=== PATIENT | female | born 1960 | race Two or more races ===

== ENCOUNTER 2024-03-14 06:15 | Day surgery (SDC) | payer MEDICARE, MEDICAID, SELFPAY ==
--- NOTE | 2024-03-13 07:54 | EKG_ITS ---
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
[2024-03-13 10:30] LABS: Collection Type, Urine Clean Catch
[2024-03-13 10:56] LABS: Basophils % (Auto) 0 % (0-2.5); Eosinophils # (Auto) 0.1 Thou/mm3 (0.0-0.5); Eosinophils % (Auto) 1 % (0-10); Hemoglobin 13.7 g/dL (12.0-16.0); Immature Granulocytes % (Auto) 0 % (0-0); Immature Granulocytes Auto 0.01 Thou/mm3 (0.00-0.00); Lymphocytes # (Auto) 0.9 Thou/mm3 (1.0-4.8); Lymphocytes % (Auto) 12 % (10-50); Mean Corpuscular HGB Conc 32.6 g/dl (31.0-37.0); Mean Corpuscular Hemoglobin 27.7 pg (25.0-35.0); Mean Corpuscular Volume 85 fL (80-100); Monocytes # (Auto) 0.6 Thou/mm3 (0.0-0.8); Monocytes % (Auto) 8 % (0-12); Neutrophils # (Auto) 5.5 Thou/mm3 (1.8-7.7); Neutrophils % (Auto) 78 % (37-80); Nucleated Red Blood Cell % 0 /100 WBC (0); Platelet Count 256 Thou/mm3 (140-440); RDW Standard Deviation 47.6 fL (36.4-46.3); Red Blood Count 4.95 Miln/mm3 (4.00-5.20); White Blood Count 7.1 Thou/mm3 (3.6-11.0)
[2024-03-13 11:02] LABS: Partial Thromboplastin Time 28.2 Seconds (22.0-36.0); Prothrombin Time 10.9 Seconds (9.0-12.2)
[2024-03-13 11:17] LABS: Alanine Aminotransferase 20 U/L (10-49); Albumin, Serum 4.8 gm/dL (3.4-4.8); Albumin/Globulin Ratio 1.7 (1.2-2.2); Alkaline Phosphatase 123 U/L (46-116); Anion Gap 11 (7-16); Aspartate Amino Transferase 11 U/L (0-34); BUN/Creatinine Ratio 7 Ratio (12-20); Blood Urea Nitrogen 8 mg/dL (9-23); Calcium 9.5 mg/dL (8.3-10.6); Calcium (Corrected) 9.5 mg/dL (8.5-10.1); Carbon Dioxide 24.4 mMol/L (20.0-31.0); Chloride 100 mMol/L (98-107); Creatinine (Component) 1.1 mg/dL (0.6-1.3); Globulin 2.8 gm/dL (2.3-3.5); Glucose 99 mg/dL (74-106); Osmolality,Calculated 268 (275-295); Potassium 4.2 mMol/L (3.4-5.1); Sodium 135 mMol/L (136-145); Total Protein 7.6 gm/dL (5.7-8.2); eGFR 56 See Note
[2024-03-13 11:32] LABS: Bacteria,Urine Rare; Bilirubin,Urine Negative (Negative); Blood,Urine Negative (Negative); Clarity,Urine Clear (Clear/Hazy); Color,Urine Lt-Yellow (Lt Yel-Yel); Glucose, Urine Negative (Negative); Ketones,Urine Negative (Negative); Leukocyte Esterase,Urine Negative (Negative); Nitrite,Urine Negative (Negative); Protein,Urine Negative (Neg - Trace); RBC,Urine < 1 /hpf (0-3); Specific Gravity,Urine 1.008 (1.001-1.035); Squamous Epithelial Cell,Urine 3 /hpf (0-5); Transitional Epi Cells,Urine < 1 /hpf (0-5); Urobilinogen,Urine Negative mg/dL (0.0-1.0); WBC,Urine 1 /hpf (0-5)
[2024-03-13 15:12] VITALS: BMI 39.4
--- NOTE | 2024-03-13 21:05 | PD.SURHP ---
HPI Date of Admission 03/14/2024 Chief Complaint Chief Complaint: Need screening colonoscopy HPI This 63 years old female is brought for screening colonoscopy she neverf had colonoscopy. Risk benefits and alternatives were discussed with the patient and informed consent was obtained. Past Medical History Past Medical History NEUROLOGIC: Negative Neurological Disorders or Seizures CARDIAC: Positive Cardiac Disorders, Peripheral Vascular Disease, Hypercholesterolemia, Hypertension and Varicose Veins (VARICOSE VEINS); Negative Congestive Heart Failure RESPIRATORY: Positive Bronchitis; Negative Chronic Obstructive Pulmonary Disease (COPD) GASTROINTESTINAL: Positive Gastrointestinal Disorders, Gall Bladder Disease, Hemorrhoids and Obesity GENITOURINARY: Positive Genitourinary Disorders; Negative Renal Disease REPRODUCTIVE: Positive Previous Pregnancies MUSCULOSKELETAL: Positive Musculoskeletal Disorders and Arthritis ENDOCRINE: Positive Diabetes Mellitus Type 2 and Hypothyroidism; Negative Endocrine Disorders or Diabetes Mellitus Type 1 HEMATOLOGIC: Negative Blood Disorders OTHER HISTORY: Positive Hospitalization, Chicken Pox, Measles and Mumps; Negative Autoimmune Disease, Down Syndrome, Developmental Delay, Shingles, Falls, Blood Transfusions, Blood Transfusion Reaction, Anesthesia Reactions, Chemotherapy, Radiation Therapy or Cancer Family History FAMILY HISTORY: Positive Family Psychiatric Problems, Family Cardiac Disorders, Family Cancer and Family Surgery; Negative Family Respiratory Disorders, Family Gastrointestinal Problems or Family Anesthesia Reaction Surgical History SURGICAL: Positive Vascular Surgery, Thyroidectomy, Joint Replacement, of Shoulder Sx (RIGHT SHOULDER SX), Knee Sx (LEFT KNEE SX), Hysterectomy and Tubal Ligation; Negative Ear Surgery or Mastectomy Social History SMOKING STATUS: Never smoker SECOND HAND EXPOSURE: No Travel History EBOLA RISK: No Meds Home Medications and Allergies Home Medications ?Medication ?Instructions ?Recorded ?Confirmed ?Type atorvastatin 10 mg tablet 10 mg PO QDAY 08/28/22 01/11/24 History lisinopril 20 mg tablet 20 mg PO QDAY 08/28/22 01/11/24 History semaglutide 3 mg tablet (Rybelsus) 6 mg PO QDAY 08/28/22 01/11/24 History amlodipine 5 mg tablet 5 mg PO QDAY 11/09/22 01/11/24 History levothyroxine 112 mcg capsule 112 mcg PO QDAY 11/09/22 01/11/24 History estradiol 0.01% (0.1 mg/gram) 2 g vaginal DIRECTED 07/27/23 01/11/24 History vaginal cream Allergies Allergy/AdvReac Type Severity Reaction Status Date / Time morphine Allergy Intermediate itching Verified 03/13/24 15:19 acetaminophen Allergy Mild Rash Verified 03/13/24 15:19 hydrocodone Allergy Mild Rash Verified 03/13/24 15:19 Exam Constitutional Constitutional: no acute distress Routine HEENT Exam Head: Present normocephalic Eye: Present EOMI and PERRL ENT: Present mucous membranes moist Routine Neck Exam Neck: Present supple and trachea midline Comments: There is a scar in the neck for thyroidectomy. Routine Chest/Breast/Axilla Exam Chest wall: Absent tenderness or mass Routine Respiratory Exam Respiratory: Present chest non-tender, lungs clear, normal breath sounds and no resp distress; Absent respiratory distress Routine Cardiovascular Exam Cardiovascular: Present RRR Routine Abdominal Exam Abdominal: Present soft and normoactive bowel sounds Routine Extremities Exam Extremities: Present full ROM Routine Skin Exam Skin: Present intact, dry and warm Routine Neurological Exam Neurological: Present alert, oriented X3 and CN II-XII intact Routine Psychiatric Exam Psychiatric: Present normal affect and normal thought process Results Results: Laboratory Laboratory results: results reviewed Assessment & Plan Problem List (1) Encounter for screening colonoscopy: Status: Acute Plan Lower GI Endoscopy possible polypectomy. Quality Measures Quality Measures none Advance care planning discussed with:: patient
[2024-03-14] VITALS (15 sets, daily range): BP systolic 100–151; BP diastolic 71–101; PULSE 83–99; RESP 14–20; TEMP 36.6–36.8; O2SAT 92–100; BMI 38.5
--- NOTE | 2024-03-14 08:50 | SUR.PHASEII ---
0850: Pt. AAOx4, vitals stable, breathing unlabored, no complaint of pain or nausea, no dressing in place, no active bleed noted, report received from Kerrie FERNANDEZ.
--- NOTE | 2024-03-14 09:25 | SUR.PHASEII ---
0925: Pt. meets criteria for DC, discharge instructions given to the pt. and her ride using bartacker, both verbalized understanding and had no further questions. Pt. able to pass gas, pt. ambulated to wheelchair with steady gait and no assist, pt. tolerated sips of water well, pt. currently waiting for her ride now.
--- NOTE | 2024-03-14 09:30 | SUR.PHASEII ---
0930: PtShante CORRAL with all personal belongings.
== END 2024-03-14 09:30 | disposition home or self-care (01) ==
PROVIDERS: PCP Physician Assistant; Referring Provider Specialist; Visit Provider Specialist
PROC: 0DJD8ZZ Inspection of Lower Intestinal Tract, Via Natural or Artificial Opening Endoscopic (ICD-10-PCS; CPT 45378; principal; 2024-03-14 07:30)
DX: Z12.11 Encounter for screening for malignant neoplasm of colon (principal); E03.9 Hypothyroidism, unspecified; E11.51 Type 2 diabetes mellitus with diabetic peripheral angiopathy without gangrene; E66.9 Obesity, unspecified; E78.00 Pure hypercholesterolemia, unspecified; I10 Essential (primary) hypertension; M19.90 Unspecified osteoarthritis, unspecified site; Z82.49 Family history of ischemic heart disease and other diseases of the circulatory system; Z87.19 Personal history of other diseases of the digestive system; Z90.710 Acquired absence of both cervix and uterus; Z01.810 Encounter for preprocedural cardiovascular examination; K62.3 Rectal prolapse; K64.9 Unspecified hemorrhoids; Z68.38 Body mass index [BMI] 38.0-38.9, adult
CPT/HCPCS: G0121; 36415; 80053; 81001; 85025; 85610; 85730; 93005; A4217; J1200; J2175; J2250; J3010

== ENCOUNTER → 2024-05-11 | Outpatient (CLI) | payer MEDICARE, MEDICAID, SELFPAY ==
--- NOTE | 2024-05-11 15:57 | XR_ITS ---
Examination: Knee, right , 3 views Technique: Knee AP, lateral, oblique 3 views Date and time of exam: May 11, 2024 1623 hours INDICATIONS: Right knee pain beginning 7 years ago. FINDINGS: Advanced tricompartment osteoarthritis, most severe medial joint space No fracture or dislocation Small knee effusion IMPRESSION: Advanced tricompartment osteoarthritis
== END | disposition home or self-care (01) ==
PROVIDERS: Referring Provider Physician Assistant; Visit Provider Physician Assistant
DX: M17.11 Unilateral primary osteoarthritis, right knee (principal)
CPT/HCPCS: 73562

== ENCOUNTER → 2024-06-20 | Outpatient (CLI) | payer MEDICARE, MEDICAID, SELFPAY ==
--- NOTE | 2024-06-20 14:15 | XR_ITS ---
Examination: Screening digital mammography, bilateral Computer aided detection 3-D breast Tomosynthesis, bilateral Date and time of exam: 06/20/2024, 2:05 PM Comparisons: December 2021, April 2023 Indications: Screening Technique: Nonmagnified MLO, CC views of the breasts to been obtained, reconstructed from 3-D Tomosynthesis images. R2 computer aided detection program utilized for evaluation of suspicious masses and/or abnormal calcifications. 3-D Tomosynthesis images obtained. Technologist: Findings: There are scattered areas of fibroglandular density. No evidence of abnormal masses or suspicious calcifications. Stable postbiopsy marker clip. Impression: BI-RADS category 2: Benign findings Recommend 1 year follow-up mammogram
== END | disposition home or self-care (01) ==
LOC: CDIM 13:51
PROVIDERS: Referring Provider Physician Assistant; Visit Provider Physician Assistant
DX: Z12.31 Encounter for screening mammogram for malignant neoplasm of breast (principal); R92.323 Mammographic fibroglandular density, bilateral breasts
CPT/HCPCS: 77063; 77067

== ENCOUNTER → 2024-06-24 | Outpatient (CLI) | payer MEDICARE, MEDICAID, SELFPAY ==
--- NOTE | 2024-06-24 12:00 | XR_ITS ---
Exam: MRI knee without contrast, right Date and time of exam: June 24, 2024 12 Technique: Multiple axial, coronal, and sagittal sections on the knee have been obtained. T2-Weighted sagittal, fat-suppressed images, TR 3,500, TE 62, T2 weighted coronal fat-saturated images, TR 3,500, TE 62 Proton density sagittal sections, TR 1800, TE 31. T-1 weighted coronal images, TR 524, TE 13.0 Findings: Medial meniscus anterior horn truncation inner margin Medial meniscus, body truncation inner margin age. The joint space. Posterior horn medial meniscus complex tears replacing the normal seminal. Lateral meniscus anterior horn horizontal linear tears Lateral meniscus, body is intact Posterior horn lateral meniscus peripheral horizontal linear tears Anterior cruciate ligament absent Posterior cruciate ligament appears intact. Knee effusion is mild. Quadriceps and patellar tendons appear intact. There is no evidence of tendinosis. Inflammatory change or fracture of Hoffa's fat pad is not seen. Medial patellar facet demonstrates moderate thinning. Lateral patellar facet cartilage demonstrates moderate thinning. Trochlear cartilage demonstrates moderate thinning. Marrow signal increased about the medial joint space. Medial collateral ligament appears intact. No meniscocapsular separation is seen. Illiotibial band and fibular collateral ligament are intact. Biceps femoris tendons appear intact. Medial femoral condylar articular cartilage demonstrates severe thinning. Lateral femoral condylar articular cartilage demonstratesmoderate thinning. Tibial plateau cartilage demonstrates severe medial thinning. Impression: Extensive medial and lateral meniscus tears Absent cruciate ligament Severe thinning cartilage medial joint space
== END | disposition home or self-care (01) ==
LOC: SMRI 11:32
PROVIDERS: PCP Physician Assistant; Referring Provider Physician Assistant; Visit Provider Physician Assistant
DX: S83.241A Other tear of medial meniscus, current injury, right knee, initial encounter (principal); S83.281A Other tear of lateral meniscus, current injury, right knee, initial encounter; X58.XXXA Exposure to other specified factors, initial encounter
CPT/HCPCS: 73721

== ENCOUNTER → 2024-07-25 | Outpatient (BNVA) | payer MEDICARE, MEDICAID, SELFPAY | END | disposition home or self-care (01) | PROVIDERS: Visit Provider Urology | DX: N39.3 Stress incontinence (female) (male) (principal); G89.4 Chronic pain syndrome; E11.9 Type 2 diabetes mellitus without complications; I10 Essential (primary) hypertension; E66.01 Morbid (severe) obesity due to excess calories; Z68.39 Body mass index [BMI] 39.0-39.9, adult; E78.00 Pure hypercholesterolemia, unspecified | CPT/HCPCS: 81003; 99212; G0463 ==

== ENCOUNTER → 2024-08-23 | Outpatient (CLI) | payer MEDICARE, MEDICAID, SELFPAY ==
--- NOTE | 2024-08-23 15:45 | XR_ITS ---
Examination: PA lateral chest 2 views TECHNIQUE: Upright PA lateral chest 2 views Date and time: August 23, 2024 1553 hours INDICATIONS: Chest pain 2 months. FINDINGS: Normal heart size. Lungs are clear. Osseous structures are intact IMPRESSION: No active disease
== END | disposition home or self-care (01) ==
PROVIDERS: PCP Physician Assistant; Referring Provider Physician Assistant; Visit Provider Physician Assistant
DX: R07.9 Chest pain, unspecified (principal)
CPT/HCPCS: 71046

== ENCOUNTER → 2024-08-23 | Outpatient (CLI) | payer MEDICARE, MEDICAID, SELFPAY ==
--- NOTE | 2024-08-23 | XR_ITS ---
Examination: Knee, right , 3 views Technique: Knee AP, lateral, oblique 3 views, standing Date and time of exam: August 23, 2024 1125 hours INDICATIONS: Right knee pain beginning 8 years ago. FINDINGS: Advanced tricompartment osteoarthritis Severe narrowing [id number] medial joint space No fracture Small knee effusion IMPRESSION: Advanced tricompartment osteoarthritis, including severe narrowing [id number] medial joint space
== END | disposition home or self-care (01) ==
PROVIDERS: PCP Physician Assistant; Referring Provider Orthopaedic Surgery; Visit Provider Orthopaedic Surgery
DX: M17.11 Unilateral primary osteoarthritis, right knee (principal); M25.861 Other specified joint disorders, right knee
CPT/HCPCS: 73562

== ENCOUNTER → 2024-08-24 | Outpatient (CLI) | payer MEDICARE, MEDICAID, SELFPAY ==
--- NOTE | 2024-08-24 11:05 | EKG_ITS ---
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
== END | disposition home or self-care (01) ==
PROVIDERS: PCP Physician Assistant; Referring Provider Physician Assistant; Visit Provider Physician Assistant
DX: Z01.818 Encounter for other preprocedural examination (principal)
CPT/HCPCS: 93005

== ENCOUNTER → 2024-08-29 | Outpatient (BNVA) | payer MEDICARE, MEDICAID, SELFPAY | END | disposition home or self-care (01) | PROVIDERS: PCP Urology; Referring Provider Urology; Visit Provider Urology | DX: D41.4 Neoplasm of uncertain behavior of bladder (principal); N35.92 Unspecified urethral stricture, female; I10 Essential (primary) hypertension; E78.00 Pure hypercholesterolemia, unspecified; E11.9 Type 2 diabetes mellitus without complications; E03.9 Hypothyroidism, unspecified | CPT/HCPCS: 52214; 81003; 96372; A4217; A4649; C1894; J1580; A9270 ==

== ENCOUNTER 2024-10-20 12:17 | Observation (INO) | payer MEDICARE, MEDICAID, SELFPAY ==
[2024-10-19 10:31] VITALS: BMI 39.6
[2024-10-19 11:04] LABS: Basophils # (Auto) 0.0 Thou/mm3 (0.0-0.2); Basophils % (Auto) 1 % (0-2.5); Eosinophils # (Auto) 0.3 Thou/mm3 (0.0-0.5); Eosinophils % (Auto) 4 % (0-10); Hematocrit 38.7 % (36.0-46.0); Hemoglobin 12.7 g/dL (12.0-16.0); Immature Granulocytes Auto 0.01 Thou/mm3 (0.00-0.00); Lymphocytes # (Auto) 2.1 Thou/mm3 (1.0-4.8); Lymphocytes % (Auto) 35 % (10-50); Mean Corpuscular HGB Conc 32.8 g/dl (31.0-37.0); Mean Corpuscular Hemoglobin 27.7 pg (25.0-35.0); Mean Corpuscular Volume 85 fL (80-100); Monocytes # (Auto) 0.4 Thou/mm3 (0.0-0.8); Monocytes % (Auto) 7 % (0-12); Neutrophils # (Auto) 3.3 Thou/mm3 (1.8-7.7); Neutrophils % (Auto) 53 % (37-80); Nucleated Red Blood Cell # 0.00 Thou/mm3 (0.00-0.00); Nucleated Red Blood Cell % 0 /100 WBC (0); Platelet Count 248 Thou/mm3 (140-440); RDW Standard Deviation 46.3 fL (36.4-46.3); Red Blood Count 4.58 Miln/mm3 (4.00-5.20); White Blood Count 6.2 Thou/mm3 (3.6-11.0)
[2024-10-19 11:19] LABS: INR 1.0 (0.9-1.3); Partial Thromboplastin Time 28.8 Seconds (22.0-36.0); Prothrombin Time 10.7 Seconds (9.0-12.2)
[2024-10-19 11:24] LABS: Alanine Aminotransferase 21 U/L (10-49); Albumin, Serum 4.4 gm/dL (3.4-4.8); Albumin/Globulin Ratio 1.6 (1.2-2.2); Alkaline Phosphatase 92 U/L (46-116); Anion Gap 10 (7-16); Aspartate Amino Transferase 23 U/L (0-34); BUN/Creatinine Ratio 16 Ratio (12-20); Bilirubin,Total 0.6 mg/dL (0.3-1.2); Blood Urea Nitrogen 11 mg/dL (9-23); Calcium 9.2 mg/dL (8.3-10.6); Calcium (Corrected) 9.2 mg/dL (8.5-10.1); Carbon Dioxide 25.1 mMol/L (20.0-31.0); Chloride 109 mMol/L (98-107); Creatinine (Component) 0.7 mg/dL (0.6-1.3); Estimated Creatinine Clearance 89.9 mL/min (>60); Globulin 2.8 gm/dL (2.3-3.5); Glucose 97 mg/dL (74-106); Osmolality,Calculated 286 (275-295); Potassium 4.2 mMol/L (3.4-5.1); Sodium 144 mMol/L (136-145); Total Protein 7.2 gm/dL (5.7-8.2); eGFR > 60 See Note
--- NOTE | 2024-10-19 13:07 | ESHP_ITS ---
RE: WILDA LOPEZ : 1960 DATE OF ADMISSION: 10/19/2024 HISTORY OF PRESENT ILLNESS: The patient came to my office on 01/16/2025 for detailed preop history and physical examination. HISTORY OF PRESENT COMPLAINT: The patient presented to me earlier with history of pain in the right knee joint. The intensity of pain is 9-10/10. Quality of life and activities of daily living is affected. The range of motion is also severely restricted. Unable to sleep. The patient is unable to walk more than 1 or 2 blocks before she had to either stop or slow down. PAST MEDICAL HISTORY: The patient has a history of high blood pressure and diabetes mellitus. No history of asthma, seizures, chest pain, myocardial infarction, bleeding disorder, or stroke. PAST SURGICAL HISTORY: Shoulder surgery, cholecystectomy, hysterectomy, thyroid surgery. DRUG HISTORY: The patient is takin. Amlodipine. 2. Levothyroxine. 3. Lisinopril. 4. Rybelsus. ALLERGIES: THE PATIENT IS ALLERGIC TO MORPHINE AND CODEINE. FAMILY HISTORY AND SOCIAL HISTORY: Noncontributory. The patient denies smoking, drinking, and is retired. PHYSICAL EXAMINATION: GENERAL: Normal-built lady. VITAL SIGNS: Pulse 62 per minute, blood pressure 140/76. NECK: Soft, supple. No mass felt. Trachea is centrally placed. CARDIOVASCULAR SYSTEM: First and second heart sounds normal. No murmur heard. LUNGS: Bilateral vesicular breath sounds. CHEST: Clear. ABDOMEN: Soft. No masses felt. Bowel sounds present. BREASTS: Not indicated in this case. The patient is advised to see the family physician for regular examination. EXTREMITIES: Right knee examination revealed 1+ swelling and 2+ tenderness. There is genu varum deformity. Active range of motion is 0-115 degrees of flexion. Crepitus is present. The patient walks with a limp. Neurovascularly, it is intact. DIAGNOSTIC DATA: X-ray of the right knee joint revealed severe osteoarthritis changes with ____ medial joint space and patellofemoral joint space. ASSESSMENT AND PLAN: Since the patient is symptomatic and is affecting her quality of life and activities of daily living, therefore, a right total knee replacement was discussed and advised. With the help of pictures and diagram and posters, it was explained to her in detail. Risks with anesthesia was explained and that includes, but is not limited to, reaction to anesthetic agents, cardiac arrest, or rarely it might be fatal. Risks of operation includes infection and if that happens, the patient may need further surgical procedure. Other risks include delayed healing, wound dehiscence, etc. Sometimes rare complication happens and if that happens, that has to be taken care of. Sometimes there is a possibility of nerve or vascular damage. Accordingly, surgery is booked for 10/20/2024. Appropriate lab work was done. The patient is also cleared for surgical procedure. Blood transfusion was discussed and the patient stated that she would take blood when it is absolutely necessary. DT: 11:57:05 TT: 13:06:00 Ref: [id number] - TID: [id number]
[2024-10-20] VITALS (15 sets, daily range): BP systolic 104–157; BP diastolic 67–97; PULSE 68–80; RESP 12–20; TEMP 36.1–36.6; O2SAT 92–100; BMI 39.3
--- NOTE | 2024-10-20 07:27 | SUR.PREOP ---
Patient expressed gratitude for prayer before their procedure.
--- NOTE | 2024-10-20 10:09 | XR_ITS ---
Examination: Knee, right , 3 views Technique: Knee AP, lateral, oblique 3 views Date and time of exam: October 20, 2024 1051 hours INDICATIONS: Postop knee replacement today. FINDINGS: Total right knee arthroplasty. Satisfactory alignment. No fracture. IMPRESSION: Total right knee arthroplasty with satisfactory alignment
--- NOTE | 2024-10-20 10:10 | PD.SUROPNT ---
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 Medial stabilizer Patella size 26 mm Findings Refer dictation Procedure Description The patient was given general anesthesia. The nerve block was also given. Once satisfactory anesthesia was achieved a tourniquet was placed on right upper thigh. Intravenous antibiotics was given at the time of anesthesia. The patient was thoroughly prepped and draped. After using Esmarch the tourniquet pressure was raised to 350 mmHg. A skin incision was made 2 inches proximal to the upper pole of patella going as far down as up to the medial aspect of the tibial tuberosity. The skin was raised as a flap on the site. The bleeding vessels were electrocoagulated as and when encountered. The quadriceps tendon, medial border of the patella and the patellar tendon along the medial aspect of the tibial tuberosity was incised and reflected. The patellar tendon was reflected as much as needed to anika the patella. The soft tissue from the upper medial border of the tibia was reflected to correct her genu varum deformity. The knee joint was flexed. The anterior cruciate ligament, medial and lateral meniscus were excised. Next para drill hole was made to the inferior surface of the femur. Following that a sword was placed. A 6?? of abduction was already put into it. Following that a cutting block for the inferior cut of the femur was placed and nicely secured with the pins. The swat was removed. The inferior cut of the femur was made and after that the cutting block was removed. Following that a sizer was placed. A decision was made to use size [7] femur implant. 2 drill holes each in 3?? of external rotation were made. The sizer was removed. Size [7] cutting block was placed. Following that anterior, posterior, anterior chamfer and posterior chamfer cuts were made. The cutting block was removed. The knee joint was extended and a 10 mm trial plastic was removed and the intended level of the tibial cut was marked. The knee joint was flexed. With the help of double-pronged the tibia was displaced anteriorly. An extramedullary jig for the cutting block placement of the tibia was placed. The mechanical axis of the zig was parallel to the mechanical axis of the tibia. Following that the tibial cutting block was placed at the desired level and was secured nicely with the help of pins. Following that the tibial cut was made. In this case was posterior cruciate ligament was saved. The cutting block was removed. The spacer was placed and a decision was made to use size [14] polyethylene. The sizing of the tibial baseplate was done and the decision was made to use size [D] tibial baseplate. Following that size [7] trial femur implant was placed in lateralized position and size [7] tibial tibial baseplate along with size [14] plastic was placed in knee joint was flexed and extended quite a few times and tibial baseplate was allowed to sit wherever it wanted to. The markings were made for the tibial baseplate. 2 drill holes were made for the inferior surface of the femur trial implant. The trial implant was removed and tibial baseplate was placed again with the help of pins. The collar was placed and superior hole was drilled. Following that a fin cut was made. The patella was reamed with [26] mm diameter reamer. [12] mm thickness was left. A collar was placed and 3 drill holes were made. All the trial implant was placed and patellar tracking was checked and found to be good. Lateral release was done at this point. The wound was irrigated with antibiotic solution every 4-5 minutes. Now the power lavage antibiotic solution was used. The knee joint was flexed. The bone were made dry. The cement was mixed. With the help of cement the tibial baseplate was mounted. The excess cement was removed. The femur implant was placed and trial plastic was placed and knee joint was extended. Patella was also mounted with the help of cementing. Excess cement was removed. Osteophytes from the patella was removed at this time. Once the cement was set the tourniquet pressure was released. The bleeding vessels were electrocoagulated. The trial plastic was removed and 14 mm, medial stabilizer ultra high molecular weight polyethylene was placed. Closure The quadriceps and medial border of the patella and patellar tendon was closed with 1 strata fix in continuous fashion. The fat layer the subcutaneous layer was closed with 2 strata fix Vicryl. Skin was closed with subcuticular stitch. The wound was cleaned with hydrogen proximal solution and a sterile dressing was applied. Patient tolerated procedure very well. Estimated blood loss [25] mL. Prognosis in this case is good. This was taken to the recovery room in good condition. Pathology / specimen None Pathology comment: None Estimated Blood Loss 25 Surgeon Chadwick Tobias MD Surgical Staff Operation Date: 10/20/24 07:30 Case Staff Anesthesiologist: Manohar Rice RNnaval aircrewman avionics: Ishan Bravo
--- NOTE | 2024-10-20 10:24 | SUR.PHASEI ---
pt received from OR in recovery bay 5. pt asleep but responds to voice, breathing unlabored on nc 6l. v/s stable. pt dressing to right lower extremity cdi. report received from Dr. Rice and Miguelangel Garcia.
--- NOTE | 2024-10-20 12:00 | SUR.PHASEI ---
pt asleep but responds to voice, breathing unlabored on 2l nc. v/s stable. pt dressing to right lower extremity cdi. report called to Bunny Garcia.
[2024-10-20] MEDS: ceFAZolin/D5W 1 GM IVPB 1 GM/50 ML BAG IV ×2 (13:29→21:19)
[2024-10-20] MEDS: ONDANSETRON INJ 2 MG/ML INJ 2 ML 4 MG IV (13:41)
[2024-10-21 04:31] VITALS: BP 134/73; PULSE 68; RESP 17; TEMP 36.6; O2SAT 95
[2024-10-21 06:32] LABS: Basophils # (Auto) 0.0 Thou/mm3 (0.0-0.2); Basophils % (Auto) 0 % (0-2.5); Eosinophils # (Auto) 0.0 Thou/mm3 (0.0-0.5); Eosinophils % (Auto) 0 % (0-10); Hematocrit 38.3 % (36.0-46.0); Hemoglobin 12.5 g/dL (12.0-16.0); Immature Granulocytes Auto 0.04 Thou/mm3 (0.00-0.00); Lymphocytes # (Auto) 1.5 Thou/mm3 (1.0-4.8); Lymphocytes % (Auto) 11 % (10-50); Mean Corpuscular HGB Conc 32.6 g/dl (31.0-37.0); Mean Corpuscular Hemoglobin 28.2 pg (25.0-35.0); Mean Corpuscular Volume 86 fL (80-100); Monocytes # (Auto) 1.0 Thou/mm3 (0.0-0.8); Monocytes % (Auto) 8 % (0-12); Neutrophils # (Auto) 10.8 Thou/mm3 (1.8-7.7); Neutrophils % (Auto) 81 % (37-80); Nucleated Red Blood Cell # 0.00 Thou/mm3 (0.00-0.00); Nucleated Red Blood Cell % 0 /100 WBC (0); Platelet Count 236 Thou/mm3 (140-440); RDW Standard Deviation 47.8 fL (36.4-46.3); Red Blood Count 4.44 Miln/mm3 (4.00-5.20); White Blood Count 13.3 Thou/mm3 (3.6-11.0)
[2024-10-21] MEDS: KETOROLAC INJ 30 MG/ML VIAL 15 MG IVP ×2 (06:41→17:36)
[2024-10-21 08:00] VITALS: BP 134/67; PULSE 64; RESP 18; TEMP 36.6; O2SAT 95
[2024-10-21 12:00] VITALS: BP 133/76; PULSE 67; RESP 18; TEMP 36.6; O2SAT 95
[2024-10-21 16:00] VITALS: BP 136/72; PULSE 70; RESP 18; TEMP 36.6; O2SAT 95
[2024-10-21 20:00] VITALS: BP 146/78; PULSE 64; RESP 17; TEMP 36.8; O2SAT 97
[2024-10-22] VITALS: BP 125/80; PULSE 73; RESP 17; TEMP 36.4; O2SAT 98
[2024-10-22] MEDS: KETOROLAC INJ 30 MG/ML VIAL 15 MG IVP ×2 (02:19→16:42)
[2024-10-22 04:00] VITALS: BP 155/83; PULSE 71; RESP 17; TEMP 36.4; O2SAT 97
[2024-10-22 08:00] VITALS: BP 101/65; PULSE 67; RESP 17; TEMP 36.4; O2SAT 95
[2024-10-22 09:24] VITALS: PULSE 69; RESP 17; RESP 94
--- NOTE | 2024-10-22 10:44 | CHAP ---
Patient was visited by the Spiritual Care Volunteer who prayed for them. (Volunteer was in the hospital from 10:18-10:44)
[2024-10-22 11:14] VITALS: BMI 14.0
[2024-10-22 12:00] VITALS: BP 147/84; PULSE 74; RESP 17; TEMP 36.4; O2SAT 95
[2024-10-22 15:51] VITALS: BP 149/96; PULSE 84; RESP 17; TEMP 36.4; O2SAT 95
--- NOTE | 2024-10-22 16:07 | PC.SS ---
Patient is a 64YO Female; reason for visit: RIGHT TK REP. Role and purpose of today's contact was explained to patient. Patient is Citizen Of [place] speaking. Patient confirmed her demographic information. Patient stated her primary medical surrogate decisionmaker is her son, Solitario Hedrick [phone]. Patient stated she utilizes a FWW for ambulation and is ?independent with ADL completion. Pharmacy: [facility]. PCP: Rodney Aguilar, last appt. was 2 weeks ago. Patient unable to provide exact date for telehealth appt. with Rodney Aguilar. Discharge plan: Home, family to provide transportation. ? Next of Kin: Son Solitario Hedrick [phone]
--- NOTE | 2024-10-22 16:55 | PC.NURSE ---
I changed pt's drsg on her R knee, removed large surgical drsg, applied abd pad & medipore tape, no redness, minimal swelling, well approximated
--- NOTE | 2024-10-27 17:16 | ESPR_ITS ---
Documentation for date of: 10/27/24 POST ANESTHESIA NOTE: Patient had GETA and R femoral block for R TKA on 10/20/24. I just called and spoke with her on the phone via erp programmer and she denied any problems from anesthesia except slight PONV. Manohar Rice MD Anesthesia Progress Note Progress Note Most recent Vital Signs: Last Vital Signs Temp 97.6 F 10/22/24 15:51 Pulse 84 10/22/24 15:51 Resp 17 10/22/24 15:51 BP 149/96 H 10/22/24 15:51 Pulse Ox 95 10/22/24 15:51 O2 Del Method Room Air 10/22/24 15:51 O2 Flow Rate 2 10/20/24 16:29
== END 2024-10-22 17:20 | disposition home or self-care (01) ==
LOC: S3SX 12:48
PROVIDERS: Anesthesiology; Admitting Provider Orthopaedic Surgery; PCP Physician Assistant; Referring Provider Orthopaedic Surgery; Visit Provider Orthopaedic Surgery
PROC: (CPT 27447; principal; 2024-10-20 07:30)
DX: M17.11 Unilateral primary osteoarthritis, right knee (principal); Z90.49 Acquired absence of other specified parts of digestive tract; Z90.710 Acquired absence of both cervix and uterus; M25.761 Osteophyte, right knee
CPT/HCPCS: 27447; 36415; 73562; 80053; 85025; 85610; 85730; 86850; 86900; 86901; 86923; 87081; 96365; 96375; 96376; 97162; A4217; C1713; C1776; G0378; J0689; J0690; J1100; J1171; J1580; J1885; J2250; J2371; J2405; J2704; J2765; J2795; J3010; J3490; A9270; J1805